=== PATIENT | female | born 1985 | race Hispanic/Latino ===

== ENCOUNTER → 2016-10-07 | Outpatient (CLI) | payer OTHER ==
[2016-10-07 17:03] LABS: BASOPHILS % (AUTO) 1 % (0-2); EOSINOPHILS # (AUTO) 0.2 10^3uL; EOSINOPHILS % (AUTO) 2 % (0-4); LYMPHOCYTES # (AUTO) 2.2 X10^3; MEAN PLATELET VOLUME 9.3 FL (6.0-9.5); MONOCYTES # (AUTO) 0.7 X10^3; MONOCYTES % (AUTO) 7 % (3-11); NEUTROPHILS # (AUTO) 6.9 X10^3; NEUTROPHILS % (AUTO) 69 % (51-67); PLATELET COUNT 390 10^3uL (150-450); WHITE BLOOD COUNT 10.06 10^3uL (4.0-11.0)
[2016-10-07 17:15] LABS: BILIRUBIN,URINE Negative (Negative); COLOR,URINE Yellow; GLUCOSE, URINE (UA) Negative (Negative); LEUKOCYTE ESTERASE, URINE Negative (Negative); PH,URINE 6.5 (5.0 - 8.0); UROBILINOGEN,URINE 0.2 mg/dL (0.2-1.0)
[2016-10-07 17:21] LABS: CLARITY,URINE Slightly Cloudy
[2016-10-07 17:46] LABS: MEAN CORPUSCULAR HEMOGLOBIN 26.1 PG (26.0-34.0); MEAN CORPUSCULAR VOLUME 79 FL (80-100)
[2016-10-08 13:49] LABS: HEPATITIS B SURFACE ANTIGEN C Negative
== END ==
LOC: LAB 16:41
PROVIDERS: ATTEND Obstetrics & Gynecology
DX: Z34.82 Encounter for supervision of other normal pregnancy, second trimester (principal); Z33.1 Pregnant state, incidental
CPT/HCPCS: 36415; 81003; 85025; 86592; 86762; 86850; 86900; 86901; 87088; 87340

== ENCOUNTER → 2016-10-13 | Outpatient (CLI) | payer OTHER ==
--- NOTE | 2016-10-13 11:29 | Diagnostic Imaging Report ---
INDICATION: Late care. TECHNIQUE: Multiple Real-time grayscale images were obtained over the gravid uterus in various projections. FINDINGS: There is a single living intrauterine in cephalic presentation. The placenta is anterior with no previa. The anatomical survey is unremarkable. The heart rate is 147 BPM. The amniotic fluid index is 17.2. The biometry correlates with a gestational age of 27 weeks 3 days. The cervical length is 3.4 cm. The estimated weight is 1045 g. IMPRESSION: There is a single living intrauterine with a sonographically estimated gestational age of 27 weeks 3 days and an estimated date of confinement of 01/09/2017. Dictated by: Dictated on workstation # [id number]
== END ==
LOC: RAD 10:25 → EDUNIT# 10:30
PROVIDERS: ATTEND Obstetrics & Gynecology
DX: Z34.82 Encounter for supervision of other normal pregnancy, second trimester (principal); Z3A.27 27 weeks gestation of pregnancy
CPT/HCPCS: 76805

== ENCOUNTER → 2016-10-21 | Outpatient (CLI) | payer OTHER ==
[2016-10-21 14:09] LABS: BASOPHILS % (AUTO) 0 % (0-2); EOSINOPHILS # (AUTO) 0.1 10^3uL; EOSINOPHILS % (AUTO) 1 % (0-4); LYMPHOCYTES # (AUTO) 2.4 X10^3; MEAN CORPUSCULAR HEMOGLOBIN 25.6 PG (26.0-34.0); MEAN CORPUSCULAR HGB CONC 32.4 g/dL (31.0-37.0); MEAN CORPUSCULAR VOLUME 79 FL (80-100); MEAN PLATELET VOLUME 9.1 FL (6.0-9.5); MONOCYTES # (AUTO) 0.9 X10^3; MONOCYTES % (AUTO) 8 % (3-11); NEUTROPHILS # (AUTO) 8.4 X10^3; NEUTROPHILS % (AUTO) 70 % (51-67); PLATELET COUNT 378 10^3uL (150-450); WHITE BLOOD COUNT 11.95 10^3uL (4.0-11.0)
== END ==
LOC: LAB 13:48
PROVIDERS: ATTEND Obstetrics & Gynecology
DX: Z33.1 Pregnant state, incidental (principal)
CPT/HCPCS: 36415; 82947; 82950; 85025

== ENCOUNTER → 2016-11-04 | Outpatient (CLI) | payer OTHER | LOC: LAB 08:59 | PROVIDERS: ATTEND Obstetrics & Gynecology | DX: Z34.83 Encounter for supervision of other normal pregnancy, third trimester (principal) | CPT/HCPCS: 82951; 82952 ==

== ENCOUNTER → 2016-12-22 | Outpatient (REF) | payer OTHER | LOC: LAB 17:28 | PROVIDERS: ATTEND Obstetrics & Gynecology | DX: Z34.83 Encounter for supervision of other normal pregnancy, third trimester (principal) | CPT/HCPCS: 87653 ==

== ENCOUNTER 2017-01-08 01:31 | Inpatient (IN) | payer OTHER ==
[2017-01-08] VITALS (21 sets, daily range): BP systolic 112–181; BP diastolic 63–101
[~2017-01-08] VITALS: Ht 154.9 cm; Wt 80.0 kg
[2017-01-08] MEDS ORDERED: SODIUM CHLORIDE FLUSH 10 ML SYR IV PRN (02:10)
[2017-01-08] MEDS ORDERED: NALBUPHINE 10 MG/ML (NUBAIN) 1 ML AMP IM PRN (02:10)
[2017-01-08] MEDS ORDERED: CALCIUM CARBONATE CHEWABLE 300 MG (TUMS) TABLET PO PRN (02:10)
[2017-01-08] MEDS ORDERED: NALBUPHINE 10 MG/ML (NUBAIN) 1 ML AMP ONE (02:29)
[2017-01-08] MEDS ORDERED: NALBUPHINE 10 MG/ML (NUBAIN) 1 ML AMP IV PRN (02:30)
[2017-01-08 02:54] LABS: MEAN PLATELET VOLUME 10.4 FL (6.0-9.5); WHITE BLOOD COUNT 11.92 10^3uL (4.0-11.0)
[2017-01-08 03:19] LABS: MEAN CORPUSCULAR HEMOGLOBIN 23.1 PG (26.0-34.0); MEAN CORPUSCULAR HGB CONC 31.3 g/dL (31.0-37.0)
--- NOTE | 2017-01-08 06:45 | History and Physical (E) ---
History & Physical (OB) Subjective: CC: HPI: 31 y/o P3 now 39+3 WGA by LMP, confirmed by 28 week U/S in term labor. Admitted this morning at 0200 at 6cm, SROM. Reports contractions since 1600, getting stronger. Reports normal FM, no VB. PNC:Since 28 WGA OB Hx: x2 at term PMHx:None PSHx:None Allergies: Coded Allergies: No Known Drug Allergies (Unverified , 01/08/17) Objective: Vital Signs Date Time Temp Pulse Resp B/P Pulse Ox O2 Delivery O2 Flow Rate FiO2 01/08/17 06:00 80 132/72 01/08/17 04:18 16 01/08/17 03:00 97.3 Laboratory Results Past 24 Hrs 01/08/17 02:30: Hematocrit 32.60, Hemoglobin 10.2, Mean Corpuscular Hemoglobin 23.1, Mean Corpuscular Hemoglobin Concent 31.3, Mean Corpuscular Volume 74, Mean Platelet Volume 10.4, Platelet Count 374, Red Blood Count 4.42, Red Cell Distribution Width 17.0, White Blood Count 11.92 General: Alert and oriented, NAD Chest: CTA Abdomen: Gravid Cardiovasular: RRR, No murmur Extremities: No edema FHT's:135, reactive, early deceleration x2 with contraction to 120, category 1 Cx:9/100/-1, bulging forebag ruptured Kaser: contractions strong, q5-8 minutes Screenings: Blood type: O Positive, Rubella Immune, RPR non-reactive, HBV Negative, HIV Negative , GBS Negative. Problems/Plans: (1) Normal labor (2) with 39 completed weeks gestation (3) Uterine contractions Admitted for term labor. GBS-. Anticipate . Additional Copies to: End of Report . LUIZ DAVIDSON MD Jan 08, 2017 06:45
[2017-01-08] MEDS ORDERED: OXYTOCIN 10 UNIT/ML (PITOCIN) 1 ML VIAL ONE (07:03)
[2017-01-08] MEDS: OXYTOCIN INJ 20 UNIT in NS 1000ml 1,000 ML IV PRN ×2 (07:20→11:41)
--- NOTE | 2017-01-08 07:40 | Vaginal Delivery Summary (E) ---
Vaginal Delivery Summary At 01:35 on 01/08/17 this 31 year old G 4 now P4 presented to the Labor and Delivery Unit at 39.3 weeks gestation. The patient presented for care at 28 weeks and ultrasound at that time confirmed dates. This complications: None Maternal labs: Blood type: O Positive, Hgb 10.4, Rubella Immune, RPR non- reactive, HBV Negative, HIV Negative , GBS Negative. Tdap booster received on . She presented for Term labor and SROM . At presentation, she was 6 cm dilated. On 01/08/17 at , AROM or forebag was performed by Dr. Davidson with thin meconium fluid returned. Nubain was given at 0230, no more given until after delivery. On 01/08/17 of Vertex, Viable Female infant with no complications. Perineum intact, EBL 150cc, intact placenta delivered. LUIZ DAVIDSON MD Jan 08, 2017 07:40
[2017-01-08] MEDS ORDERED: HYDROcodone/APAP 7.5 MG/325 MG (NORCO) TABLET PO PRN (07:45)
[2017-01-08] MEDS ORDERED: LANOLIN OINTMENT 28 GM TUBE TOP PRN (07:45)
[2017-01-08] MEDS: IBUPROFEN 600 MG (MOTRIN) TAB PO PRN (16:53)
[2017-01-08] MEDS ORDERED: DOCUSATE SODIUM 100 MG (COLACE) CAP PO SCH (21:00)
[2017-01-09 07:25] LABS: MEAN PLATELET VOLUME 9.7 FL (6.0-9.5); WHITE BLOOD COUNT 12.27 10^3uL (4.0-11.0)
[2017-01-09 07:28] LABS: MEAN CORPUSCULAR HEMOGLOBIN 22.9 PG (26.0-34.0); MEAN CORPUSCULAR HGB CONC 30.4 g/dL (31.0-37.0)
[2017-01-09 08:00] VITALS: BP 130/78
[2017-01-09] MEDS: IBUPROFEN 600 MG (MOTRIN) TAB PO PRN (08:15)
--- NOTE | 2017-01-09 08:30 | NUR ---
Dr. Avendaño discusses post care and care with pt and . Pt verbalizes understanding of all instructions to Dr. Avendaño
--- NOTE | 2017-01-09 10:12 | Progress Note (E) ---
Post- Progress Note Subjective: Doing well. Bottlefeeding. Ambulating, voiding, passing gas. No BM yet. Bleeding minimal. Pain controlled. Eating well. Objective: Vital Signs Date Time Temp Pulse Resp B/P Pulse Ox O2 Delivery O2 Flow Rate FiO2 01/09/17 08:00 97.4 72 16 130/78 Room air I & O 01/08/17 01/09/17 19:00 07:00 Intake Total 900 ml Output Total 200 ml Balance 700 ml Laboratory Tests 01/09/17 07:12: Hematocrit 24.70, Hemoglobin 7.5, Mean Corpuscular Hemoglobin 22.9, Mean Corpuscular Hemoglobin Concent 30.4, Mean Corpuscular Volume 75, Mean Platelet Volume 9.7, Platelet Count 271, Red Blood Count 3.28, Red Cell Distribution Width 17.0, White Blood Count 12.27 Blood type: O Positive, Current Medications Calcium Carbonate 1-2 tablets PO q4 ho... Q4H PRN PO; Start 01/08/17 at 02:10 Sodium Chloride 10 ml PRN PRN IV; Start 01/08/17 at 02:10 Nalbuphine HCl 10 mg Q2HR PRN IV Last administered on 01/08/17 07:33; Admin Dose 10 MG; Start 01/08/17 at 02:30 Ibuprofen 600 mg Q6H PRN PO Last administered on 01/09/17 08:15; Admin Dose 600 MG; Start 01/08/17 at 07:45 Docusate Sodium 100 mg HS PO; Start 01/08/17 at 21:00 Lanolin 28 gm PRN PRN TOP; Start 01/08/17 at 07:45 Acetaminophen/ Hydrocodone Bitart Total acetaminophen not... Q4H PRN PO; Start 01/08/17 at 07:45 General: Alert and oriented, NAD Abdomen: Soft, non-distended, fundus firm Extremities: No edema Problems/Plans: (1) (spontaneous vaginal delivery) Assessment & Plan: Discharge today. FU in 6 weeks. KARIN MACARIO MD Jan 09, 2017 10:12
[2017-01-09] MEDS ORDERED: DOCU100C8 PO (10:14)
[2017-01-09] MEDS ORDERED: IBUP-1772 PO (10:14)
--- NOTE | 2017-01-09 11:20 | NUR ---
Dismissed via w/c to home. Accompanied by and hospital staff.
== END 2017-01-09 11:20 | disposition home or self-care (01) | DRG 775 ==
LOC: EUOP 01:31 → OB 01:32 → EUOP 02:14 → OB 02:16
PROVIDERS: ADMIT Obstetrics & Gynecology; ATTEND Obstetrics & Gynecology
PROC: 10E0XZZ Delivery of Products of Conception, External Approach (ICD-10-PCS; principal; 2017-01-08)
PROC: 10907ZC Drainage of Amniotic Fluid, Therapeutic from Products of Conception, Via Natural or Artificial Opening (ICD-10-PCS; 2017-01-08)
DX: O77.0 Labor and delivery complicated by meconium in amniotic fluid (principal); Z3A.39 39 weeks gestation of pregnancy; Z37.0 Single live birth
CPT/HCPCS: 36415; 85027; 86850; 86870; 86880; 86900; 86901; 86905; 86906; 99202